=== PATIENT | male | born 1975 | race Caucasian/White ===

== ENCOUNTER 2016-05-26 16:00 | Emergency (ER) | payer MEDICAID ==
[~2016-05-26] VITALS: Ht 172.7 cm; Wt 98.9 kg
[~2016-05-26 16:00] MED LIST: IBUP-1547 PO; NO HOME MEDICATIONS
[2016-05-26 16:05] VITALS: TEMP 98.9; Ht 172.7 cm; Wt 98.9 kg
--- OUTSIDE RECORDS SUMMARY | 2016-05-26 16:11 | XMS REPORT | Referral Summary ---
Author Author [facility] Organization [facility] Address Unknown Phone Unavailable Care Team Providers Care Patient Safety Officer Name Role Phone Joselo Deutsch Primary Care Physician [phone] Encounter Date(s): 01/11/16 - 01/11/16 [facility] [address] [place] [id number] Discharge Diagnosis: Visit for suture removal Discharge Diagnosis: Abnormal blood sugar Discharge Diagnosis: Finger laceration Discharge Diagnosis: Hypertension Discharge Diagnosis: Chronic back pain Discharge Diagnosis: Burn of arm Discharge Diagnosis: Current smoker Discharge Diagnosis: Chronic bipolar disorder Discharge Disposition: 01-Home or Self Care Attending Physician: Hammad Deutsch MD Admitting Physician: Hammad Deutsch MD Vital Signs Most recent to 1 oldest [Reference Range]: Blood Pressure 100/60 mmHg [90-140/60-90 mmHg] (01/11/16 1:24 PM) Problem List Condition Effective Dates Status Health Status Informant Chronic knee Active pain(Confirmed) Arthritis(Confirmed) Active patient Abnormal blood Active sugar(Confirmed) Chronic back Active patient pain(Confirmed) Hypertension(Confirm Active patient ed) Chronic bipolar Active disorder(Confirmed) Obesity(Confirmed) Active patient Current Active smoker(Confirmed) Allergies, Adverse Reactions, Alerts No Known Medication Allergies Medications ibuprofen 800 mg oral tablet 1 tabs, Oral, q8hr, as needed for pain, # 21 tabs, 0 Refill(s) Start Date: 07/17/13 Stop Date: 07/24/13 Status: Ordered Misc Medication on an antibiotic for steam burn, 0 Refill(s) Start Date: 01/11/16 Status: Ordered Results No data available for this section Immunizations Vaccine Date Refusal Reason tetanus/diphth/pertuss (Tdap) adult/adol 06/02/15 influenza virus vaccine, H1N1, inactivat 10/26/15 tetanus/diphtheria/pertussis, acel(Tdap) 12/11/15 Procedures Procedure Date Related Diagnosis Body Site Arm repair Social History Social History Type Response Smoking Status Current some day smoker; Type: Oral Assessment and Plan Extracted from: Title: Ambulatory Patient Education Author: Hammad Deutsch MD Date: Emergency Medicine Electrical Burn An electrical burn can cause damage to both the skin and deeper tissues. If an electrical burn is minor and only affects the skin, it can be treated like other diaz. If deeper tissues (muscles, nerves, blood vessels) are injured, hospital care may be needed. Electrical diaz may go deep into the body, but signs of a burn on the skin may be minimal. These deeper diaz may affect the heart and other vital organ systems. Significant muscle damage or breakdown ( rhabdomyolysis) can occur if enough electrical injury is sustained.This can cause muscular pain, fatigue, and spasms. It may also cause your urine to become very dark, because products from the muscle breakdown end up in the urine. If you have any of these symptoms, you must seek immediate medical care. Electrical injuries may also cause trauma due to falling or being "knocked back " by the electrical shock. This may result in significant injury to an extremity or to the head, resulting in loss of consciousness. The degree of damage is related to the type of current (alternating [AC] or direct [DC]) and the amount of voltage (low or high). Most electrical injuries in the home are low voltage AC injuries, but it is important to tell your caregiver how the electrical burn happened to help determine your treatment. Most electrical diaz are not life-threatening, but cardiac or respiratory arrest can occur from electrical injuries. HOME CARE INSTRUCTIONS Keep the burn area clean and dry. Use burn dressings, burn creams, and ointments only as directed by your caregiver. Dressings may be changed once or twice each day or as directed. Rest the burn area and keep it raised (elevated) to reduce swelling and pain. Take pain medicine as directed by your caregiver. SEEK IMMEDIATE MEDICAL CARE IF: You develop a fever, redness, or pus drainage. You develop chest pain or shortness of breath. You develop new numbness or weakness in any of your extremities. You have significant pain and swelling in any of your extremities. Your urine becomes very dark, and you have more pain, fatigue, and muscle spasms. MAKE SURE YOU: Understand these instructions. Will watch your condition. Will get help right away if you are not doing well or get worse. This information is not intended to replace advice given to you by your health care provider. Make sure you discuss any questions you have with your health care provider. Document Released: 03/05/2005 Document Revised: 02/16/2015 Document Reviewed: [employer] Patient Education 2016 [employer] No follow up information was provided. Extracted from: Title: Office Visit Note Author: Hammad Deutsch MD Date: 01/11/16 Assessment/Plan Abnormal blood sugar This issue was reviewed, appears stable, and current therapy continued except as mentioned. Appropriate lab was reviewed from the most recent appropriate entry and lab was ordered if needed in the cpoe/nursing orders, and follow up recommended generally in 90 days and no later then six months. Diet and exercise as tolerated and feasible. Consider medication when interested. RTC in three months for a recheck. Burn of arm Routine wound care. Consider vitamin E cream. Chronic back pain This issue was reviewed, appears stable, and current therapy continued except as mentioned. Appropriate lab was reviewed from the most recent appropriate entry and lab was ordered if needed in the cpoe/nursing orders, and follow up recommended generally in 90 days and no later then six months. Chronic bipolar disorder We discussed several options for treatment for this condition. The patient declined any changes or other treatments at this time. Mood stable without meds at this time. Current smoker Smoking Cessation was discussed. The patient is welcome to f/u for therapy or medication for smoking cessation at any time that they are willing to quit. Finger laceration Routine wound care. Sutures removed. Tdap utd. Steri- strips given for one week. RTC as needed. IC notesreviewed that he had with him. Hypertension The patient's issue is nearly or completely resolved. There is no further issues or testing desired by them at this time. The patient had an elevated blood pressure reading and is to monitor their bp and call with a report if consistently > 140/90. Visit for suture removal The patient's issue is nearly or completely resolved. There is no further issues or testing desired by them at this time. See above.
--- OUTSIDE RECORDS SUMMARY | 2016-05-26 16:11 | XMS REPORT | Continuity of Care Document ---
Author Author [facility] Organization [facility] Address Unknown Phone Unavailable Care Team Providers Care Tourist Information Officer Name Role Phone CHAY SHEARER MD Primary Care Physician [phone] Insurance Providers Guarantor Howard Gonzalez Address [address] [place] [address] Email DENIED/NO EMAIL Payer [facility] Community Plan Policy Number [id number] Subscriber's Name Howard Gonzalez Relationship 18 Self Effective Date 16 Expiration Date 16 Chief Complaint and Reason for Visit Chief Complaint Throat Pain/Injury Reason for Visit Viral pharyngitis Problems Active Problems Medical Problem Onset Date Status Aggressive behavior Unknown Chronic Alcohol abuse Unknown Chronic Bilateral chronic knee pain Unknown Acute Blister (nonthermal), left foot, initial encounter Unknown Acute Blisters of multiple sites Unknown Acute Headache Unknown Acute Homicidal ideation Unknown Acute Poor impulse control Unknown Chronic Tinea cruris Unknown Acute Past Problems Medical Problem Onset Date Bilateral chronic knee pain Unknown Blisters of multiple sites Unknown Fracture, tooth Unknown Headache Unknown Laceration of index finger of right hand without complication Unknown Second degree burn of arm Unknown Tinea cruris Unknown Viral pharyngitis Unknown Viral syndrome Unknown Medications Current Home Medications Medication Dose Units Route Directions Days Qty Instructions Start Date Ibuprofen 800 Mg Tablet 1 Tab Oral Every 6 Hours as needed for Pain 03/04/16 No Home Medications 02/05/16 Past Home Medications Medication Directions Ordered Status Bismuth Subsalicylate (Pepto-Bismol) 262 Mg/15 Ml Oral.susp, 262 Mg Oral As Needed 03/16/08 Discontinued Fluoxetine Hcl (Prozac) 40 Mg Capsule, 40 Mg Oral Daily 03/16/08 Discontinued Fluticasone Propionate (Flonase) 16 Gm Clarence.susp, 16 Gm Nasal As Needed 06/17 Discontinued Hydrochlorothiazide 25 Mg Tablet, 25 Mg Oral Daily 03/16/08 Discontinued Hydrocodone Bit/Acetaminophen (Lortab 7.5-500 Tablet) 1 Tab Tablet, 1 - 2 Tab Oral As Needed 03/19/08 Discontinued Lorazepam 0.5 Mg Tablet, 0.5 Mg Oral As Needed 03/16/08 Discontinued Naproxen , 1 Oral As Needed 10/07/08 Discontinued Simvastatin (Zocor) 40 Mg Tablet, 40 Mg Oral Daily 03/16/08 Discontinued Social History Social History Problem Response Recorded Date/Time Onset Date Status Hx Substance Use No 02/07/2016 1:30am Not Applicable Not Applicable Hx Alcohol Use Y ONCE IN A BLUE [place] 02/07/2016 1:30am Not Applicable Not Applicable Tobacco Usage smoke 06/04/2015 2:48am Not Applicable Not Applicable Hospital Discharge Instructions No hospital discharge instructions. Plan of Care Discharge Date 03/04/16 2:34pm Disposition 01 DISCHARGED HOME, SELF-CARE Condition at Discharge Stable Instructions/Education Provided Pharyngitis (ED) Forms Provided [facility] Work/School Permit Prescriptions See Medication Section Referrals CHAY SHEARER MD Address: [address] [place] [address] [place] [phone] Functional Status No functional status results. Allergies, Adverse Reactions, Alerts Allergen Type Severity Reaction Status Last Updated No Known Drug Allergies Allergy Unknown Active 03/04/16 Immunizations Query Response on File Recorded Date/Time Hx Influenza Vaccination Yes 03/15/08 1:51pm Hx Tetanus, Diptheria, Pertussis NO BROKEN SKIN 11/06/08 1:36am Hx Influenza Vaccination Yes 03/15/08 1:51pm Hx Tetanus, Diptheria, Pertussis NO BROKEN SKIN 11/06/08 1:36am DTaP Vaccine History UP TO DATE 03/04/16 2:06pm Influenza Vaccine Hx UNSURE 03/04/16 2:06pm Tetanus Diptheria Vaccine History 01/05/2016 03/04/16 2:06pm Vital Signs Acute Vital Signs Vital Response Date/Time Temperature (Fahrenheit) 98.3 deg F (96.8 - 99.1) 03/04/2016 2:05pm Temperature (Calculated Celsius) 36.95396 degrees C (36.0 - 37.3) 03/04/2016 2:05pm Pulse Rate (adult) 85 bpm (60 - 100) 03/04/2016 2:05pm Respiratory Rate 18 breaths/min (10 - 20) 02/07/2016 2:07am O2 Sat by Pulse Oximetry 97 % (90 - 100) 03/04/2016 2:05pm Blood Pressure 108/72 mm Hg 03/04/2016 2:05pm Height (Feet) 5 feet 03/04/2016 2:05pm Height (Inches) 5.00 inches 03/04/2016 2:05pm Weight (Kilograms) 96.700 kg 03/04/2016 2:05pm Body Mass Index (BMI) 35.0 03/04/2016 2:05pm Results Laboratory Results Test Name Result Units Flags Reference Collection Date/Time Result Date/ Time Comments Group A Streptococcus Screen NEGATIVE NEGATIVE 03/04/2016 2:23pm 2:35pm Procedures Procedure Status Date Provider(s) Emergency dept visit Completed 02/05/16 Emergency dept visit Completed 02/07/16 Encounters Encounter Location Arrival/Admit Date Discharge/Depart Date Attending Provider Departed Emergency Room [facility] 03/04/16 1:57pm 03/04/16 2: 34pm BARBIE RAMÍREZ APRN Departed Emergency Room [facility] 02/07/16 12:59am 02/07/16 2: 07am NURYS FENG MD Departed Emergency Room [facility] 02/05/16 11:17pm 02/05/16 11: 53pm CEFERINO HESS MD Departed Emergency Room [facility] 01/07/16 6:58pm 01/07/16 7: 46pm PAULO ZIMMERMAN APRN Departed Emergency Room [facility] 12/24/15 1:20pm 12/24/15 1: 53pm PAULO ZIMMERMAN APRN Recent Diagnosis
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
--- NOTE | 2016-05-26 16:25 | ERPDOC ---
Departure Disposition Decision Date: May 26, 2016 Disposition Decision Time: 17:29 Disposition: 01 DISCHARGED HOME, SELF-CARE Impression Impression Impression: Primary Impression: Atypical chest pain Additional Impressions: Costochondritis Back pain, chronic Back pain location: low back pain Back pain laterality: bilateral Sciatica presence: without sciatica Qualified Codes: G89.29 - Other chronic pain; M54.5 - Low back pain Severity: Moderate Condition: Stable Seen By: Physician only Referrals: MARGOT BILLINGS MD Follow-up for evaluation of back, he is a back specialist CHAY SHEARER MD (PCP/Family) Follow-up for reevaluation Patient Instructions: Chest Wall Pain (ED) Problems/Meds/Labs Reviewed?: Yes Medications reviewed and manag: Yes Additional Instructions: Do not take ibuprofen while you're taking the Mobic Follow up care ordered?: Yes Mental Status: Alert, Oriented Scripts Meloxicam (Mobic) 15 Mg Tablet 1 TAB PO DAILY for 10 Days, #10 TAB Prov: NURYS FENG MD 05/26/16 HPI - Chest Pain General Chief Complaint: Chest Pain Stated Complaint: BACK,CHEST PAIN Time Seen by Provider: 16:25 Source: patient Exam Limitations: no limitations HPI - Chest Pain Initial Comments Patient is a 5-year-old male presents emergency department for evaluation of chest pain, back pain. Patient does have a history of chronic back issues, has had a prior to 3 days process fracture. Patient taking ibuprofen for that, states that is not working he would request referral to a back specialist. Patient also now complaining of all day history of anterior chest pain worse with inspiration no nausea no vomiting no diaphoresis. Patient has taken nothing for the pain, decided to present to the ER for evaluation currently 06/18 Occurred At: home Onset/Timing: Constant Duration: 6-12 hrs Pain/Severity Scale: Now & Worst: 6/10 Location: substernal Chest Pain Radiation: no radiation Nitro Today/Relief: no nitro taken today Aspirin Treatment Today: contraindicated (probably noncardiac) Prior Chest Pain/Cardiac Samm: no prior chest pain, no prior cardiac workup Hx of Similar Symptoms: No Allergies: Coded Allergies: No Known Drug Allergies (Verified Allergy, Unknown, 03/04/16) Past History Past Medical History Metabolic: DENIES: diabetes, hypercholesterolemia, hypertension, hypothyroidism ENMT: dental problems Cardiac: DENIES: A-fib, CAD, CHF Psychological: alcohol abuse, other Surgical History Denies Surgeries Cardiac: DENIES: cardiac bypass, cardiac cath, pacemaker Family History Family PMH: FOUND: cancer, diabetes, hypertension, other Vaccines Hx Influenza Vaccination: Yes Social History Smoking Status: Current some day smoker Does patient use chewing tobac: No # of Packs/Tins per Day: 1.0 # of Years: 29 Second Hand Exposure: No Substance Use Type: does not use Alcohol Intake: occasionally Current Occupational Status: employed Review of Systems Constitutional Constitutional: DENIES: appetite decrease, chills, dizziness, fever, weakness Eyes Vision: DENIES: double vision, loss of visual [place] ENMT Sinuses: DENIES: congestion, rhinorrhea Mouth/Throat: DENIES: scratchy throat, sore throat Cardiovascular Cardiac: chest pain, DENIES: dyspnea on exertion Pulmonary Respiratory: DENIES: cough, dyspnea, sputum, tachypnea GI Upper Abdomen: DENIES: nausea, pain, vomiting Lower Abdomen: DENIES: constipation, diarrhea, pain General: DENIES: frequency, urgency Musculoskeletal General: see HPI Integumentary Skin: DENIES: color change, itching, rash Endocrine Endocrine: DENIES: heat/cold intolerance Hematologic/Lymphatic Hematologic/Lymphatic: DENIES: anemia Physical Exam General General Nourishment: well nourished, well developed General Body Habitus: well groomed Vitals and Pain First Documented Vital Signs Date Time Temp Pulse Resp B/P Pulse Ox O2 Delivery O2 Flow Rate FiO2 05/26/16 16:05 98.9 85 16 123/77 97 Room Air Weight: Kilograms: 98.900 Height (feet): 5 Height (inches): 8.00 Triage Pain Scale: RN VS reviewed by Provider: Yes Eyes (brief) Eyes Brief: found: EOMI ENMT (brief) ENMT Brief: FOUND: mucosa moist, normal dentition, NOT FOUND: nasal erythema, pharnyx erythema, tonsillar deviation Neck (brief) Neck: NOT FOUND: adenopathy, spasm, tenderness Respiratory (brief) Respiratory: FOUND: clear all [place], equal bilaterally, NOT FOUND: rales, wheezes Cardiovascular (brief) Cardiac: FOUND: regular rate, regular rhythm Capillary Refill: <2 sec Abdomen (brief) Abdominal Brief: FOUND: bowel normo active x4, soft, NOT FOUND: distended, tender Lymphatic (brief) Lymphatic Brief: NOT FOUND: adenopathy Musculoskeletal (brief) Musculoskeletal Brief: NOT FOUND: spasm, tenderness Integumentary (brief) Integumentary Brief: FOUND: dry, pink, warm, NOT FOUND: rash Neurologic (brief) Neurological Brief: FOUND: CN w/o gross def to obs, motor-no gross deficits, sensory-no gross deficits Psychiatric (brief) Psychiatric Brief: FOUND: alert, oriented Differential Diagnoses Considering: Acute SD, Anxiety/Panic, Angina, CHF, Costochondritis, Esophageal Spasm, GERD, Pericarditis, Pleurisy, Pneumothorax, Pneumonia, Pulmonary Edema, Pulmonary Embolus, Muscle Spasm Progress Results/Orders Orders Procedure Category Date Status Time EKG EKG 05/26/16 Taken 16:01 Cbc W/Auto LAB 05/26/16 Complete Diff-Reflex Manual 16:30 Cmp - Comprehensive LAB 05/26/16 Complete Metabolic 16:30 Probnp LAB 05/26/16 Complete 16:30 Troponin I W LAB 05/26/16 Complete Hemolysis Index 16:30 D-Dimer LAB 05/26/16 Complete 16:30 Magnesium LAB 05/26/16 Complete 16:30 Chest, Pa & Lateral RAD 05/26/16 Taken 16:30 Ketorolac (Toradol) PHA 05/26/16 Complete 16:30 Lab Results Laboratory Tests Test 05/26/16 16:40 White Blood Count 6.7T/MM3 Red Blood Count 4.90M/MM3 Hemoglobin 13.7GM/DL Hematocrit 41.8% Mean Corpuscular Volume 85.3UM3 Mean Corpuscular Hemoglobin 28.0UUG Mean Corpuscular Hemoglobin Concent 32.8GM/DL RDW Standard Deviation 41.9FL Platelet Count 284T/MM3 Mean Platelet Volume 9.3UM3 Immature Granulocyte % (Auto) 0.3% Neutrophils (%) (Auto) 69.1% Lymphocytes (%) (Auto) 22.1% Monocytes (%) (Auto) 6.2% Eosinophils (%) (Auto) 1.9% Basophils (%) (Auto) 0.4% Absolute Immature Granulocyte (auto 0.02T/MM3 Absolute Neutrophils (auto) 4.6T/MM3 Absolute Lymphocytes (auto) 1.5T/MM3 Absolute Monocytes (auto) 0.4T/MM3 Absolute Eosinophils (auto) 0.1T/MM3 Absolute Basophils (auto) 0.0T/MM3 D-Dimer < 150NG/ML Turbidity < 20 Sodium Level 146MEQ/L Potassium Level 4.2MEQ/L Chloride Level 108MEQ/L Carbon Dioxide Level 24MEQ/L Anion Gap 14MEQ/L Blood Urea Nitrogen 13.0MG/DL Creatinine 0.8MG/DL Glomerular Filtration Rate Calc 107 BUN/Creatinine Ratio 16RATIO Glucose Level 156MG/DL Calculated Osmolality 284MOSM/KG Calcium Level 9.7MG/DL Magnesium Level 2.0MG/DL Total Bilirubin 0.70MG/DL Icterus Index < 2 Aspartate Amino Transf (AST/SGOT) 27U/L Alanine Aminotransferase (ALT/SGPT) 34U/L Alkaline Phosphatase 57U/L Troponin I < 0.012ng/ml AO-Iqh-K-Type Natriuretic Peptide 29PG/ML Total Protein 7.3G/DL Albumin 4.1G/DL Globulin 3.2G/DL Albumin/Globulin Ratio 1.3RATIO Chemistry Specimen Hemolysis < 15 Medications Current ED Medications Ketorolac Tromethamine (Toradol) 60 mg O ONCE IM Last administered on t 16:50; Start 05/26/16 at 16:30; Stop 05/26/16 at 16:32; Status DC Progress Progress Patient's chest x-ray EKG laboratories are all noncontributory patient has had constant chest pain for greater than 8 hours, suspect noncardiac in origin, due to patient's chronic back issues will start patient on [place], do not take other anti-inflammatory such as ibuprofen or Aleve, patient is referred to Dr. Billings for his back pain and referred back to his primary physician for further evaluation of his chest discomfort. EKG EKG : Rate: 60-100 Rhythm: sinus [place]: normal QRS: normal Intervals: normal ST/T: non-specific changes Interpreted by: signing physician Xray Xray : Xray: CXR Portable Interpretation: Normal, Interpreted by NURYS Ramirez MD May 26, 2016 16:25
[2016-05-26] MEDS ORDERED: KETOROLAC 60mg/2ml INJECTION IM ONE (16:30)
[2016-05-26] MEDS ORDERED: SODI104S2 NS (16:34)
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
[2016-05-26 16:52] LABS: BASOPHILS % (AUTO) 0.4 % (0-2); EOSINOPHILS # (AUTO) 0.1 T/MM3 (0-0.5); EOSINOPHILS % (AUTO) 1.9 % (0-4); HCT - HEMATOCRIT 41.8 % (41-53); HGB - HEMOGLOBIN 13.7 GM/DL (13.5-17.5); IMMATURE GRANULOCYTE # (AUTO) 0.02 T/MM3 (0.00-0.03); IMMATURE GRANULOCYTE % (AUTO) 0.3 % (0.0-0.5); LYMPHOCYTES # (AUTO) 1.5 T/MM3 (1-4.8); LYMPHOCYTES % (AUTO) 22.1 % (23-45); MEAN CORPUSCULAR HGB CONC(MCHC 32.8 GM/DL (31-37); MEAN CORPUSCULAR VOLUME 85.3 UM3 (80-100); MEAN PLATELET VOLUME 9.3 UM3 (9.4-12.4); MONOCYTES # (AUTO) 0.4 T/MM3 (0-0.8); MONOCYTES % (AUTO) 6.2 % (0-9.0); NEUTROPHILS #(AUTO)-ABSOLUTE 4.6 T/MM3 (1.8-7.7); NEUTROPHILS % (AUTO) 69.1 % (33-66); WBC - WHITE BLOOD COUNT 6.7 T/MM3 (4.5-11.0)
[2016-05-26 17:11] LABS: ALBUMIN 4.1 G/DL (3.5-5.0); ALBUMIN/GLOBULIN RATIO 1.3 RATIO (1.1-2.2); ALKALINE PHOSPHATASE 57 U/L (38-126); ALT (SGPT) 34 U/L (21-72); ANION GAP 14 MEQ/L (5-15); AST (SGOT) 27 U/L (17-59); BUN/CREATININE RATIO 16 RATIO (6-26); CALCIUM 9.7 MG/DL (8.4-10.2); CHLORIDE 108 MEQ/L (98-107); CO2 - CARBON DIOXIDE 24 MEQ/L (22-30); CREATININE 0.8 MG/DL (0.8-1.5); GLOMERULAR FILTRATION RATE 107; GLUCOSE 156 MG/DL (75-110); POTASSIUM 4.2 MEQ/L (3.6-5); SODIUM 146 MEQ/L (134-144); TOTAL PROTEIN 7.3 G/DL (6.3-8.2)
[2016-05-26 17:20] LABS: PROBNP 29 PG/ML (0-175)
[2016-05-26] MEDS ORDERED: MELO15TA12 PO (17:30)
[2016-05-26 18:11] VITALS: BP 118/79; PULSE 71; RESP 18; O2SAT 97
--- NOTE | 2016-05-27 08:48 | DI ---
INDICATION: ITS.REASON: anterior superior chest pain PROCEDURE: CHEST 2-VIEWS UPRIGHT (PA \T\ LAT) Encounter: Initial COMPARISON: None FINDINGS: The lungs are clear without evidence of focal abnormal airspace opacity. There is no pleural effusion or pneumothorax. The heart size, mediastinal contours and pulmonary vascularity are within normal limits. There is no significant skeletal abnormality. IMPRESSION: No acute cardiopulmonary disease. .
== END 2016-05-26 17:40 | disposition home or self-care (01) ==
LOC: ED 16:00
DX: R07.89 Other chest pain (principal); M94.0 Chondrocostal junction syndrome [Tietze]; M54.5 Low back pain; G89.29 Other chronic pain
CPT/HCPCS: 36415; 71020; 80053; 83735; 83880; 84484; 85025; 85379; 93005; 96372; 99283; J1885